=== PATIENT | female | born 1960 | race Caucasian/White ===

== ENCOUNTER → 2017-05-21 | Outpatient (CLI) | payer MEDICARE, OTHER ==
[2017-05-21 14:07] LABS: ABSOLUTE EOSINOPHILS # (AUTO) 0.2 10^3/uL (0.0-0.6); ABSOLUTE LYMPHOCYTES (AUTO) 2.4 10^3/uL (0.5-4.7); ABSOLUTE MONOCYTES (AUTO) 0.4 10^3/uL (0.1-1.4); ABSOLUTE NEUT (AUTO) 2.6 10^3/uL (1.7-8.2); BASOPHILS % (AUTO) 0.4 % (0-2); EOSINOPHILS % (AUTO) 4.4 % (0-6); HEMATOCRIT 40.7 % (36.0-47.0); LYMPHOCYTES % (AUTO) 41.9 % (13-45); MEAN CORPUSCULAR HEMOGLOBIN 31.3 pg (27.0-33.4); MEAN CORPUSCULAR HGB CONC 34.3 g/dL (32.0-36.0); MEAN CORPUSCULAR VOLUME 91 fl (80-97); MONOCYTES % (AUTO) 6.6 % (3-13); PLATELET COUNT 269 10^3/uL (150-450); RED BLOOD COUNT 4.47 10^6/uL (3.72-5.28); RED CELL DISTRIBUTION WIDTH 13.3 % (11.5-14.0); SEGMENTED NEUTROPHILS % (AUTO) 46.7 % (42-78); TOTAL CELLS COUNTED % (AUTO) 100 %; WHITE BLOOD COUNT 5.6 10^3/uL (4.0-10.5)
[2017-05-21 14:14] LABS: INTERNATIONAL RATION (INR) 0.97; PROTHROMBIN TIME 13.6 SEC (11.4-15.4)
[2017-05-21 14:15] LABS: PARTIAL THROMBOPLASTIN TIME 27.4 SEC (23.5-35.8)
[2017-05-21 14:16] LABS: APPEARANCE,URINE CLEAR; BILIRUBIN,URINE NEGATIVE (NEGATIVE); COLOR,URINE YELLOW; GLUCOSE, URINE NEGATIVE (NEGATIVE); KETONES,URINE NEGATIVE (NEGATIVE); LEUKOCYTE ESTERASE,URINE NEGATIVE (NEGATIVE); NITRITE,URINE NEGATIVE (NEGATIVE); PROTEIN,URINE NEGATIVE (NEGATIVE); URINE SPECIFIC GRAVITY 1.017; UROBILINOGEN,URINE NEGATIVE mg/dL (<2.0)
== END ==
LOC: OD 13:19
PROVIDERS: ATTEND Student in an Organized Health Care Education/Training Program
DX: Z51.81 Encounter for therapeutic drug level monitoring (principal); Z01.812 Encounter for preprocedural laboratory examination
CPT/HCPCS: 36415; 81001; 85025; 85610; 85730

== ENCOUNTER 2017-07-02 07:18 | Day surgery (SDC) | payer MEDICARE, OTHER ==
[2017-06-25 11:22] LABS: APPEARANCE,URINE CLEAR; BILIRUBIN,URINE NEGATIVE (NEGATIVE); COLOR,URINE YELLOW; GLUCOSE, URINE NEGATIVE (NEGATIVE); KETONES,URINE NEGATIVE (NEGATIVE); LEUKOCYTE ESTERASE,URINE NEGATIVE (NEGATIVE); NITRITE,URINE NEGATIVE (NEGATIVE); PROTEIN,URINE NEGATIVE (NEGATIVE); URINE SPECIFIC GRAVITY 1.014; UROBILINOGEN,URINE NEGATIVE mg/dL (<2.0)
--- NOTE | 2017-06-25 13:04 | EKG REPORT ---
SEVERITY:- BORDERLINE ECG - SINUS RHYTHM NONSPECIFIC ST-T CHANGES- INFERIOR LEADS : Confirmed by: Gurinder Camacho MD 25-Jun-2017 13:03:07
--- NOTE | 2017-06-25 13:09 | RADIOLOGY REPORT (SQ) ---
EXAM DESCRIPTION: CHEST PA/LATERAL COMPLETED DATE/TIME: 06/25/2017 12:59 pm REASON FOR STUDY: PRE OP COMPARISON: AP chest 02/09/2011 EXAM PARAMETERS: NUMBER OF VIEWS: two views TECHNIQUE: Digital Frontal and Lateral radiographic views of the chest acquired. RADIATION DOSE: NA LIMITATIONS: none FINDINGS: LUNGS AND PLEURA: No opacities, masses or pneumothorax. No pleural effusion. MEDIASTINUM AND HILAR STRUCTURES: No masses or contour abnormalities. HEART AND VASCULAR STRUCTURES: Heart normal size. No evidence for failure. BONES: No acute findings. HARDWARE: None in the chest. OTHER: No other significant finding. IMPRESSION: NO SIGNIFICANT RADIOGRAPHIC FINDING IN THE CHEST. TECHNICAL DOCUMENTATION: JOB ID: [id number] [employer]- All Rights Reserved Reading location - IP/workstation name: [email or web address]
[2017-06-25 13:41] LABS: HEMATOCRIT 43.3 % (36.0-47.0); HEMOGLOBIN 14.8 g/dL (12.0-15.5); MEAN CORPUSCULAR HGB CONC 34.1 g/dL (32.0-36.0); MEAN CORPUSCULAR VOLUME 91 fl (80-97); PLATELET COUNT 243 10^3/uL (150-450); RED BLOOD COUNT 4.76 10^6/uL (3.72-5.28); RED CELL DISTRIBUTION WIDTH 13.6 % (11.5-14.0); WHITE BLOOD COUNT 6.7 10^3/uL (4.0-10.5)
[2017-06-25 13:42] LABS: INTERNATIONAL RATION (INR) 0.97; PARTIAL THROMBOPLASTIN TIME 28.3 SEC (23.5-35.8); PROTHROMBIN TIME 13.4 SEC (11.4-15.4)
[~2017-07-02 07:18] MED LIST: BUPIVACAINE HCL 0.25% /EPINEPHRINE INJ/PF 30 ML SDV ONE; CEFAZOLIN 1 GM/D5W RTU 1 GM/50 ML RTUPB IV PRN; LACTATED RINGERS 1000 ML IV PRN; LIDOCAINE 0.5% INJ-PF (5 MG/ML) 50 ML SDV SUBCUT PRN; LIDOCAINE 1% INJ-PF (10 MG/ML) 30 ML SDV ONE; SODIUM BICARBONATE 8.4% INJ 50 MEQ/50 ML DISP.SYRIN ONE
[2017-07-02 08:04] LABS: APPEARANCE,URINE CLEAR; BILIRUBIN,URINE NEGATIVE (NEGATIVE); COLOR,URINE YELLOW; GLUCOSE, URINE NEGATIVE (NEGATIVE); KETONES,URINE NEGATIVE (NEGATIVE); LEUKOCYTE ESTERASE,URINE NEGATIVE (NEGATIVE); NITRITE,URINE NEGATIVE (NEGATIVE); PROTEIN,URINE NEGATIVE (NEGATIVE); URINE SPECIFIC GRAVITY 1.012; UROBILINOGEN,URINE NEGATIVE mg/dL (<2.0)
[2017-07-02] MEDS ORDERED: MIDAZOLAM 2 MG/2 ML INJ ONE ×2 (09:06→09:07)
[2017-07-02] MEDS ORDERED: PROPOFOL INJ 200 MG/20 ML VIAL IV ONE (09:07)
[2017-07-02] MEDS ORDERED: BUPIVACAINE HCL 0.25% /EPINEPHRINE INJ/PF 30 ML SDV ONE (09:12)
[2017-07-02] MEDS ORDERED: FENTANYL CITRATE INJ/PF 100 MCG/2 ML AMPUL IV PRN ×3 (10:34)
[2017-07-02] MEDS ORDERED: DIPHENHYDRAMINE HCL 50 MG/ML VIAL IV PRN (10:34)
[2017-07-02] MEDS ORDERED: OXYCODONE-ACETAMINOPHEN 5-325 MG TABLET PO PRN ×3 (10:34→11:56)
[2017-07-02] MEDS ORDERED: PROMETHAZINE HCL INJ 25 MG/1 ML VIAL IV PRN ×2 (10:34)
[2017-07-02] MEDS ORDERED: MEPERIDINE HCL/PF INJ 25 MG/1 ML DISP.SYRIN IV PRN (10:34)
[2017-07-02] MEDS ORDERED: FENTANYL CITRATE INJ/PF 100 MCG/2 ML AMPUL ONE (11:24)
[2017-07-02] MEDS ORDERED: CEFAZOLIN INJ 1 GM VIAL ONE (11:35)
[2017-07-02] MEDS: HYDROMORPHONE HCL INJ/PF 2 MG/ML AMPULE ONE ×3 (11:45→11:55)
--- NOTE | 2017-07-02 12:00 | RADIOLOGY REPORT (SQ) ---
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 FLUOROSCOPY TIME: 7.2 minutes 21 images saved to PACS. TECHNIQUE: Intra-operative images acquired during surgical procedure to evaluate progress. NUMBER OF IMAGES: 21 LIMITATIONS: None. FINDINGS: Placement of a neurostimulator mid thoracic. IMPRESSION: IMAGE(S) OBTAINED DURING PROCEDURE. COMMENT: Quality ID [id number]: Final reports for procedures using fluoroscopy that document radiation exp osure indices, or exposure time and number of fluorographic images (if radiation exposure indices are not available) Please consult full operative report of the attending physician for description of the procedure. TECHNICAL DOCUMENTATION: JOB ID: [id number] [employer]- All Rights Reserved Reading location - IP/workstation name: [email or web address]
--- NOTE | 2017-07-02 12:00 | RADIOLOGY REPORT (SQ) ---
EXAM DESCRIPTION: NO CHG FLUORO; THORACOLUMBAR SPINE AP/LAT COMPLETED DATE/TIME: 07/02/2017 11:23 am REASON FOR STUDY: SPINAL STIMULATOR ASST WITH FLUORO IN OR M51.36 OTHER INTERVERTEBRAL DISC DEGENER ATION, LUMBAR REGION Z79.01 NURSING HOME (CURRENT) USE OF ANTICOAGULANTS COMPARISON: None. FLUOROSCOPY TIME: 7.2 minutes 21 images saved to PACS. TECHNIQUE: Intra-operative images acquired during surgical procedure to evaluate progress. NUMBER OF IMAGES: 21 LIMITATIONS: None. FINDINGS: Placement of a neurostimulator mid thoracic. IMPRESSION: IMAGE(S) OBTAINED DURING PROCEDURE. COMMENT: Quality ID [id number]: Final reports for procedures using fluoroscopy that document radiation exp osure indices, or exposure time and number of fluorographic images (if radiation exposure indices are not available) Please consult full operative report of the attending physician for description of the procedure. TECHNICAL DOCUMENTATION: JOB ID: [id number] [employer]- All Rights Reserved Reading location - IP/workstation name: [email or web address]
[2017-07-02] MEDS ORDERED: ACETAMINOPHEN 100 ML IV ONE (12:02)
--- NOTE | 2017-07-02 12:39 | OPERATIVE REPORT E ---
Operative Report NAME: BENSON CARRINGTON : 1960 AGE: 57Y DATE OF SURGERY: 07/02/2017 ROOM: PREOPERATIVE DIAGNOSIS: Lumbar radiculopathy. POSTOPERATIVE DIAGNOSIS: Lumbar radiculopathy. PROCEDURE: Spinal cord stimulator permanent implantation with impulse pulse generator and dual lead placement. SURGEON: LISE MARLOW M.D. LEAD SHIPPER: Dr. Dameon Liang ANESTHESIA: MAC. COMPLICATIONS: None. PROCEDURE IN DETAIL: After obtaining informed consent, I advised the patient of all the risks and benefits including serious neurological injury, bleeding, infection, spinal fluid leak, allergic reaction, paralysis, nerve injury, , and failure to obtain satisfactory relief. She was taken to the operating room and placed comfortably in the prone position. MAC anesthesia was administered. After application of monitoring, she was then prepped with Chloraprep x2 and then draped. After appropriate waiting and drying time, she was then evaluated with fluoroscopy, and adequate space was found at L1-L2. The skin covering both the premarked buttock incision on the right and the midline were anesthetized with 1% Lidocaine and bicarbonate, followed by 0.25% bupivacaine with epinephrine. Beginning at the midline incision, sharp and blunt dissection was performed down into the fascia using a left paramedian approach. A 14 gauge Touhy needle was placed in the epidural space at L1-L2. Loss of resistance with saline was utilized beginning with the first needle. The electrode was advanced under fluoroscopic guidance through the top of the T9 being positioned in the midline. A second lead was placed through a second needle using the same technique of loss of resistance using the right paramedian approach. On the right side, lateral views were taken initially showed satisfactory posterior placement. The leads were then tested, and appropriate stimulation was found with bilateral stimulation with discussion with the patient. Once again, the leads were then secured using pursestrings with anchors in the place. The anchors were then sutured in place. The needles were removed sequentially. The pursestrings were secured, and the anchor was placed and secured as well. While lead positioning was occurring, Dr. Liang was assisting me in creating the pocket for the new pulse generator. As soon as the pocket was made, proper hemostasis was confirmed. The skin between the tunneling was then performed using anesthesia 1% lidocaine and a standard tunneling tool. Both incisions were felt to be satisfactory and proper hemostasis was confirmed. Wires were then easily placed in the midline and stitched to the pocket, and connected to the pulse generator, which was then tested and appropriate communication was made. All connections were secure. The generator was then placed in the proper pocket and assessed and found to be satisfactory. The incision was again checked on fluoroscopy in both lateral and AP views. The wounds were copiously irrigated. The areas were then closed with interrupted vertical mattress sutures using 3-0 Vicryl. Matilde were used in the midline and tape and Dermabond on both the midline and buttock incision. OpSite dressings were then placed over the tape with Telfa in between. The patient was then taken to the PACU for further postoperative care and monitoring. DICTATING PHYSICIAN: LISE MARLOW M.D. [id number] PHY#: [id number] ID: [id number] JOB#: [id number] ACCT: [id number] cc:LISE MARLOW M.D. >
[2017-07-02 15:08] VITALS: BP 98/67
== END 2017-07-02 14:20 | disposition home or self-care (01) ==
LOC: OROUT 07:18
PROVIDERS: ATTEND Student in an Organized Health Care Education/Training Program
PROC: 00HU3MZ Insertion of Neurostimulator Lead into Spinal Canal, Percutaneous Approach (ICD-10-PCS; 2017-07-02)
PROC: 0JH70MZ Insertion of Stimulator Generator into Back Subcutaneous Tissue and Fascia, Open Approach (ICD-10-PCS; principal; 2017-07-02 09:30)
DX: M51.36 Other intervertebral disc degeneration, lumbar region (principal); E03.9 Hypothyroidism, unspecified; M54.16 Radiculopathy, lumbar region; M47.896 Other spondylosis, lumbar region; F45.42 Pain disorder with related psychological factors; M79.1 Myalgia; Z01.812 Encounter for preprocedural laboratory examination; K21.9 Gastro-esophageal reflux disease without esophagitis; E66.9 Obesity, unspecified; Z79.01 Long term (current) use of anticoagulants; Z79.899 Other long term (current) drug therapy; Z79.891 Long term (current) use of opiate analgesic; Z68.33 Body mass index [BMI] 33.0-33.9, adult
CPT/HCPCS: 63650; 63685; C1820; 1936; 36415; 71046; 72080; 81001; 85027; 85610; 85730; 93005; 93010; C1778; J0131; J0690; J1170; J2250; J2704; J3010; J3490

== ENCOUNTER 2018-10-21 07:57 | Day surgery (SDC) | payer MEDICARE, OTHER ==
[2018-10-21 08:50] LABS: HEMATOCRIT 42.5 % (36.0-47.0); HEMOGLOBIN 14.4 g/dL (12.0-15.5); MEAN CORPUSCULAR HEMOGLOBIN 30.8 pg (27.0-33.4); MEAN CORPUSCULAR VOLUME 91 fl (80-97); PLATELET COUNT 242 10^3/uL (150-450); RED BLOOD COUNT 4.69 10^6/uL (3.72-5.28); RED CELL DISTRIBUTION WIDTH 13.8 % (11.5-14.0)
[2018-10-21 09:14] LABS: BLOOD UREA NITROGEN 6 mg/dL (7-20)
[2018-10-21 09:30] LABS: PARTIAL THROMBOPLASTIN TIME 26.2 SEC (23.5-35.8); PROTHROMBIN TIME 14.3 SEC (11.4-15.4)
[2018-10-21] MEDS ORDERED: BUPIVACAINE HCL 0.5 % INJ/PF 30 ML SDV ONE (10:33)
[2018-10-21] MEDS ORDERED: MIDAZOLAM 2 MG/2 ML INJ ONE (10:33)
[2018-10-21] MEDS ORDERED: FENTANYL CITRATE INJ/PF 100 MCG/2 ML AMPUL ONE (10:33)
[2018-10-21] MEDS ORDERED: LIDOCAINE 2% INJ (20 MG/ML) 20 ML MDV ONE (10:33)
[2018-10-21] MEDS ORDERED: METHYLPREDNISOLONE ACETATE INJ 40 MG/1 ML ML ONE (10:33)
[2018-10-21] MEDS ORDERED: LIDOCAINE 1% INJ-PF (10 MG/ML) 30 ML SDV ONE (10:34)
--- NOTE | 2018-10-21 11:43 | Operative Report ---
PREOPERATIVE DIAGNOSIS: Sacroilitis POSTOPERATIVE DIAGNOSIS: Sacroilitis PROCEDURE: 1. Radiofrequency Ablation of [LT L5] Dorsal Ramus 2. Sacroiliac Joint Ablation - Lateral Branches of [LT S1, S2, S3] DATE OF PROCEDURE:[10/21/18 ] ANESTHESIA: [fentanyl, versed; local] COMPLICATIONS: [none ] CONSENT: A full description of the procedure was provided including benefits as well as possible complications. All questions were answered and informed consent was given and signed. ASA guidelines for fasting were verified prior to sedation. PROCEDURE IN DETAIL The patient was brought into the fluoroscopy suite and carefully assisted into the prone position on the fluoroscopy table and allowed to adjust to a position of comfort. A grounding pad was placed on the [LEFT] thigh. The low back and buttocks were widely prepped with a chloraprep solution, allowed to air dry and draped in standard sterile surgical fashion. Local anesthesia was provided by [ 1] mL of [1 ] % [ lidocaine] delivered with a 25 g needle. PROCEDURE #1: Radiofrequency Ablation of Dorsal Ramus of L5 A 17g 100mm radiofrequency introducer needle was placed to the planned anatomic target, guided with intermittent fluoroscopy with a perpendicular approach, to terminally place at the [LEFT] sacral ala. The stylet was removed and the radiofrequency probes with a 4mm active tip were then inserted. Needle tip position of the probes were verified in the AP, oblique, and lateral views. At each site, the medial branch nerve was stimulated at 2Hz to a maximum of 1- 2volts determined to finalize safe needle and electrode placement. The patient was awake and responsive during this portion of the procedure. Each target was anesthetized with 1-2mL of [2 ] %[lidocaine ] anesthesia for lesioning and then each target was lesioned at 80 degrees Celsius for 2 minutes and 30 seconds. Tissue impedences were noted to be between 250 and 500 Ohms. PROCEDURE #2: Radiofrequency Ablation of S1, S2, S3 Lateral Branches Using the AP fluoroscopic view for visualization of the lateral PSFA as defined by the pre-placed 27-gauge Quincke needles, appropriate skin starting positions were defined. Using the PSFA as a "clock-face", the positions were: S1; Right = 1 oclock, 3 oclock and 5 oclock S2; Right = 1 oclock, 3 oclock and 5 oclock S3; Right = 1 oclock, 5 oclock Using fluoroscopic guidance, a 17g introducer needle was inserted sequentially onto the target positions described above until the introducer tip touched the bony surface of the sacrum. The stylet was withdrawn from the introducer and the radiofrequency probe with a 4 mm active tip was fully inserted into the introducer. A lateral view was obtained for standard reference. At each of the targets, needle placement was verified with the use of multi-planar fluoroscopy. Noted difficulty reaching sacral surface at S2 with meeting of delta target more posterior than expected. Multiple repositions attempted and decision to state at location of delta endopoint. The needle tip position was approximately 7 - 10mm lateral to the PSFA. At each site, the lateral branch nerve was stimulated at 2 Hz to a maximum of 1- 2 volts determined to finalize safe needle and electrode placement. The patient was awake and responsive during this portion of the procedure. Each target was anesthetized with 1-2 mL of [ 2]% [lidocaine ] anesthesia for lesioning and then each target was lesioned at 80 degrees Celsius for 2 minutes and 30 seconds. Tissue impedences were noted to be between 250- 500 Ohms. At the conclusion of t he lesioning the needles were removed and bandages placed over the needle placement sites and the patient returned to the supine position on a stretcher and transported to the recovery room without hemodynamic, neurologic, or allergic reactions. Fluoroscopic images were printed for hard copy recording and digitally archived. FLUOROSCOPIC INTERPRETATION: Appropriate imaging obtained. Appropriate lesioning of the 9 targets noted. POST PROCEDURE EVALUATION: The patient was comfortable in the recovery room. The patient is aware that pain may worsen before remitting and 4 6 weeks may be required prior to the onset of pain relief. IMPRESSION: 1. Technically successful sacral lateral branch, lumbar dorsal ramus neurotomy for denervation from L5-S3 on the [LEFT] without complication. 2. RTC in [4 ] weeks. 3. Estimated Blood Loss: [5cc ] 4. Fluoroscopy time: [see nursing record ] seconds
[2018-10-21 15:16] VITALS: BP 118/79
== END 2018-10-21 12:20 | disposition home or self-care (01) ==
LOC: RAD 07:57
PROVIDERS: ATTEND Student in an Organized Health Care Education/Training Program
DX: M54.18 Radiculopathy, sacral and sacrococcygeal region (principal); M46.1 Sacroiliitis, not elsewhere classified; M53.3 Sacrococcygeal disorders, not elsewhere classified
CPT/HCPCS: 36415; 84520; 82565; 85027; 85610; 85730; 64635; 64640 ×3; 99152; 99153; J2250; J3490 ×3; J3010; J1030